=== PATIENT | female | born 1980 | race Caucasian/White ===

== ENCOUNTER 2022-10-11 13:10 | Outpatient (CLI) | payer BC, SELFPAY ==
--- NOTE | 2022-10-11 13:20 | CRLHL7_ITS ---
For Patients: As a result of the Century Cures Act, medical imaging exams and procedure reports are released immediately into your electronic medical record. You may view this report before your referring provider. If you have questions, please contact your health care provider. BILATERAL SCREENING MAMMOGRAM WITH COMPUTER-AIDED DETECTION AND TOMOSYNTHESIS TECHNIQUE: CC and MLO views were obtained. These mammographic images have been obtained using full-field digital technique. These mammographic images were interpreted with the benefit of computer-aided detection. Breast Tomosynthesis was used in this interpretation. COMPARISON FILM: 09/13/21. FINDINGS: There are scattered areas of fibroglandular density IMPRESSION: There is no radiographic evidence for malignancy. ASSESSMENT: BI-RADS Category 1: Negative RECOMMENDATION: Routine screening mammogram in 1 year. A lay language report of this examination will be provided to the patient. Fadi Anders M.D. Diagnostic Radiologist [email or web address] Transcribed: 2:06 p.naeem robert/Dictated by: Fadi Anders MD @ 10/12/2022 10:13:00 AM (Electronically Signed)
== END 2022-10-11 13:11 | disposition home or self-care (01) ==
LOC: MAMMO 13:13
PROVIDERS: PCP Obstetrics & Gynecology; Visit Provider Obstetrics & Gynecology
DX: Z12.31 Encounter for screening mammogram for malignant neoplasm of breast (principal)
CPT/HCPCS: 77063; 77067

== ENCOUNTER 2023-11-12 13:22 | Outpatient (CLI) | payer BC, SELFPAY | END 2023-11-12 13:23 | disposition home or self-care (01) | PROVIDERS: Visit Provider Obstetrics & Gynecology | DX: Z13.1 Encounter for screening for diabetes mellitus (principal); N92.6 Irregular menstruation, unspecified | CPT/HCPCS: 80061; 84443 ==

== ENCOUNTER 2023-12-10 07:02 | Outpatient (CLI) | payer BC, SELFPAY ==
--- NOTE | 2023-12-10 07:15 | MR_ITS ---
Patient: JAIME ONEAL Facility:?[facility] Patient ID:?[id number] Site Patient ID:?[id number]. Site :?1980 Study:?MRI-Pelvis (Bony) SACRUM/COCCYX WO-12/10/2023 10:08:14 AM Ordering Physician:MARCELA Final Report: EXAM: MRI OF THE SACRUM , WITHOUT CONTRAST CLINICAL INDICATION: Sacral pain with sitting. COMPARISON PLAIN FILMS: None. COMPARISON CROSS-SECTIONAL IMAGING STUDIES: 03/22/2021 MRI. TECHNICAL: Axial, sagittal and coronal T1, PD FS and STIR images of the sacrum. FINDINGS: SI JOINTS: No hypertrophic changes or periarticular edema. No erosions, effusion or ankylosis. OSSEOUS STRUCTURES: No fracture, marrow edema or marrow replacement process. No edema in the sacrococcygeal discs or prevertebral soft tissue swelling. MUSCULOTENDINOUS STRUCTURES: Tendons and visualized musculotendinous units are intact. No muscle atrophy, or edema to suggest strain changes. Piriformis muscle mass is symmetric, right to left, without atrophy or edema. INTRAPELVIC CONTENTS: No mass, fluid collection or adenopathy. NEUROVASCULAR STRUCTURES: No abnormality involving the visualized sacral nerve roots or proximal femoral or proximal sciatic nerves. No aneurysmal dilation of the visualized distal aorta or iliac arterial circulation. IMPRESSION: 1. Unremarkable MRI of the sacrum. Dictated by Dioni Spence MD @ 12/10/2023 1:04:13 PM Signed by:?Dioni Spence MD @12/10/2023 1:04:13 PM (Electronic Signature)
== END 2023-12-10 07:03 | disposition home or self-care (01) ==
PROVIDERS: PCP Family Medicine; Visit Provider Family Medicine
DX: M53.3 Sacrococcygeal disorders, not elsewhere classified (principal)
CPT/HCPCS: 72195

== ENCOUNTER 2023-12-27 13:47 | Outpatient (CLI) | payer BC, SELFPAY ==
--- OUTSIDE RECORDS SUMMARY | 2023-12-27 13:50 | XMS_ITS | Clinical Summary ---
Author Name Unknown Organization [facility] Address [address] [place] [address] Care Team Providers Care Buyer Renter Name Role Phone Kemar Waddell MD Primary Care Provider [phone] Source Comments You are receiving this document as you are listed as the primary care provider,follow-up provider, or the patient has been referred to you for consultation.This is in compliance with the Medicare and[facility] EHR Incentive Program,which states Providers who transition their patient to another setting of careor provider of care or refers their patient to another provider of care shouldprovide summary care record for each transition of care or referral. [facility] Allergies Active Allergy Reactions Criticality Noted Date Comments Gold-Containing Drug Products 2015 PN: Wedding rings-rashes Sulfa Antibiotics 02/13/2003 PN: LW Reaction: Nausea Sulfabenzamide Hives 02/25/2016 Medications Medication Sig Dispensed Refills Start Date End Date Status meclizine (ANTIVERT) 25 MG tablet Take 25 mg by mouth 4 times daily as needed for Dizziness. 02/25/2016 Active acetaminophen (TYLENOL) 325 MG tablet 650 mg up to every 6-8 hours. Maximum 3000 mg (8 tabs) per 24 hours 1 tablet 0 02/25/2016 Active ibuprofen (MOTRIN) 200 MG tablet 400-800 mg up to every 8 hours when stomach is not empty. Alternative is naproxen (Aleve) 2 tabs up to twice a day. Either of these can be combined with Tylenol. 1 tablet 0 02/25/2016 Active Active Problems Problem Noted Date Diagnosed Date Rash and nonspecific skin eruption 02/25/2016 Greater trochanteric bursitis 02/25/2016 Back pain 02/25/2016 Allergic rhinitis 02/14/2003 Overview: Rhinitis Allergic NOS Immunizations Name Administration Dates Next Due HepB Adult (Engerix-B, 20+ y rs, 3 dose series) 10/01/2000,04/30/2000,03/23/2000 Td 04/24/1997 Social History Tobacco Use Types Packs/Day Years Used Date Smoking Tobacco: Former Smokeless Tobacco: Never Sex and Gender Information Value Date Recorded Sex Assigned at Not on file Gender Identity Not on file Sexual Orientation Not on file Last Filed Vital Signs Vital Sign Reading Time Taken Comments Blood Pressure 151/102 10/11/2018 1:55 PM ACTIVE DIRECTORY SYSTEMS ADMINISTRATOR kiosk machine Pulse 100 10/11/2018 1:55 PM ACTIVE DIRECTORY SYSTEMS ADMINISTRATOR Temperature - - Respiratory Rate - - Oxygen Saturation - - Inhaled Oxygen Concentration - - Weight 75.9 kg (167 lb 4.8 oz) 02/25/2016 8:27 AM CDT Height 153.7 cm (5' 0.5) 02/25/2016 8: 27 AM CDT Body Mass Index 32.14 02/25/2016 8:27 AM CDT Plan of Treatment Health Maintenance Due Date Last Done Comments Hep C Screening (Preventive Services) 1980 HIV Screening (Preventive Services) 1996 Adult Preventive Visit 1998 Cervical Cancer Screening Due 02/14/2003 02/13/2003, 08/23/2001, 03/23/2000, Additional history exists COVID-19 Vaccine ( season) 2023 10/26/2020, 10/05/2020 Influenza (#1) 2023 06/22/2020, 11/0 11/2018, 06/26/2018, Additional history exists Zoster/Shingles (1 of 2) 2030 DTaP/Tdap/Td (3 - Tdap) 11/22/2030 11/22/2020, 04/24 HepB Completed 10/01/2000, 04/11, 03/23/2000 HPV Vaccine Aged Out No longer eligi ble based on patient's age to complete this topic HepA Aged Out No longer eligi ble based on patient's age to complete this topic Hib Aged Out No longer eligi ble based on patient's age to complete this topic IPV (Polio) Aged Out No longer eligi ble based on patient's age to complete this topic MCV4 Aged Out No longer eligi ble based on patient's age to complete this topic Pneumococcal Aged Out No longer eligi ble based on patient's age to complete this topic Procedures Procedure Name Priority Date/Time Associated Diagnosis Comments ANATOMICAL PATH LIQUID BASED Routine 02/13/2003 10:56 AM CDT from Last 3 Months or Most Recently Relevant to Health Maintenance Results * Pap Smear (02/13/2003 10:56 AM CDT) PAP Smear Liquid Based SEE TEXT No normal range HP CONVERSION Comment: Patient: JAIME SOLIS ? CERVICAL CYTOLOGY REPORT Pathology # ??[id number] ?Date Obtained: ? Date Received: LMP: CLINICAL HIST LIQUID BASED PAP CERVICAL SPECIMEN ADEQUACY: ?? Satisfactory. ENDOCERVICAL CELLS: ??Present. CYTOLOGIC IMPRESSION: Negative for intraepithelial lesion or malignancy. Verified 02/27/03 by: ??LBM ?(electronic signature) 02/13/2003 10:5 6 AM CDT Colten Nunez MD LAB_1 HP CONVERSION from Last 3 Months or Most Recently Relevant to Health Maintenance Care Teams Buyer Renter Relationship Specialty Start Date End Date Kemar Waddell MD [address] [facility] [place] [id number] PCP - General 01/28/16
--- NOTE | 2023-12-27 14:00 | MM_ITS ---
Patient: JAIME ONEAL Facility:?[facility] Patient ID:?[id number] Site Patient ID:?[id number]. Site :?1980 Study:?XRay-Breast Bilateral 3D W/CAD-12/27/2023 2:04:23 PM Ordering Physician:Robina Final Report: BILATERAL SCREENING MAMMOGRAM WITH COMPUTER-AIDED DETECTION AND TOMOSYNTHESIS TECHNIQUE: CC and MLO views were obtained. These mammographic images have been obtained using full-field digital technique. These mammographic images were interpreted with the benefit of computer-aided detection. Breast Tomosynthesis was used in this interpretation. COMPARISON FILM: 10/11/22, 09/13/21. FINDINGS: There are scattered areas of fibroglandular density IMPRESSION: There is no radiographic evidence for malignancy. ASSESSMENT: BI-RADS Category 1: Negative RECOMMENDATION: Routine screening mammogram in 1 year. A lay language report of this examination will be provided to the patient. Fadi Anders M.D. Diagnostic Radiologist [email or web address] [email or web address] Transcribed: 12:57 p.naeem robert/Dictated by: Fadi Anders MD @ 12/28/2023 9:31:00 AM Signed by:?Fadi Anders MD @12/28/2023 3:02:14 PM (Electronic Signature)
== END 2023-12-27 13:48 | disposition home or self-care (01) ==
LOC: MAMMO 13:47
PROVIDERS: PCP Family Medicine; Visit Provider Obstetrics & Gynecology
DX: Z12.31 Encounter for screening mammogram for malignant neoplasm of breast (principal)
CPT/HCPCS: 77063; 77067

== ENCOUNTER 2025-02-17 14:28 | Outpatient (CLI) | payer BC, SELFPAY ==
--- NOTE | 2025-02-17 14:40 | CRLHL7_ITS ---
For Patients: As a result of the Century Cures Act, medical imaging exams and procedure reports are released immediately into your electronic medical record. You may view this report before your referring provider. If you have questions, please contact your health care provider. INDICATION: BILATERAL SCREENING MAMMOGRAM, ASYMPTOMATIC 44Y/F COMPARISON: 12/27/23, 10/11/22, 12/09/21 TECHNIQUE: Digital mammogram in CC and MLO projections including computer-aided detection (CAD) and tomosynthesis. BREAST COMPOSITION: The breasts are heterogeneously dense, which may obscure small masses. FINDINGS: No suspicious findings. ASSESSMENT: BI-RADS 1 Negative RECOMMENDATION: Annual screening mammogram. A lay language report of this examination will be provided to the patient. Dictated by: Fadi Anders MD @ 02/19/2025 11:27:15 (Electronically Signed)
== END 2025-02-17 14:29 | disposition home or self-care (01) ==
LOC: MAMMO 14:31
PROVIDERS: PCP Family Medicine; Visit Provider Obstetrics & Gynecology
DX: Z12.31 Encounter for screening mammogram for malignant neoplasm of breast (principal); R92.333 Mammographic heterogeneous density, bilateral breasts
CPT/HCPCS: 77063; 77067